=== PATIENT | male | born 1965 | race Two or more races ===

== ENCOUNTER 2021-03-05 12:11 | Emergency (ER) | payer OTHER ==
[~2021-03-05] VITALS: Ht 167.6 cm; Wt 106.6 kg
[2021-03-05] MEDS ORDERED: ALODIPINE (12:48)
[2021-03-05] MEDS ORDERED: MUPIROCIN22 GM TOP (13:33)
== END 2021-03-05 14:32 | disposition home or self-care (01) ==
LOC: ER 12:11
DX: S60.413A Abrasion of left middle finger, initial encounter (principal); X58.XXXA Exposure to other specified factors, initial encounter; Y93.89 Activity, other specified; Y92.010 Kitchen of single-family (private) house as the place of occurrence of the external cause